=== PATIENT | female | born 1960 | race Caucasian/White ===

== ENCOUNTER → 2017-05-20 | Outpatient (CLI) | payer OTHER ==
[~2017-05-20] MED LIST: LEVOTHYROXIN0.175 MG PO
== END ==
LOC: MC.RAD 09:00
DX: Z12.31 Encounter for screening mammogram for malignant neoplasm of breast (principal)

== ENCOUNTER → 2018-10-05 | Outpatient (CLI) | payer OTHER | LOC: MC.RAD 07:00 | DX: Z12.31 Encounter for screening mammogram for malignant neoplasm of breast (principal) ==

== ENCOUNTER → 2019-02-12 | Outpatient (CLI) | payer OTHER | LOC: COL.RAD 06:59 | DX: J43.9 Emphysema, unspecified (principal); F17.200 Nicotine dependence, unspecified, uncomplicated; Z90.49 Acquired absence of other specified parts of digestive tract | CPT/HCPCS: Q9967 ==

== ENCOUNTER → 2019-05-03 | Outpatient (CLI) | payer OTHER | LOC: COL.RAD 07:17 | DX: R91.8 Other nonspecific abnormal finding of lung field (principal); K31.89 Other diseases of stomach and duodenum; Z87.891 Personal history of nicotine dependence; Z90.49 Acquired absence of other specified parts of digestive tract | CPT/HCPCS: Q9967 ==

== ENCOUNTER → 2019-10-19 | Outpatient (CLI) | payer OTHER | LOC: MC.RAD 09:18 | DX: Z12.31 Encounter for screening mammogram for malignant neoplasm of breast (principal); Z00.00 Encounter for general adult medical examination without abnormal findings ==

== ENCOUNTER → 2020-03-15 | Outpatient (CLI) | payer OTHER | LOC: COL.RAD 07:45 | DX: N28.1 Cyst of kidney, acquired (principal); Q43.8 Other specified congenital malformations of intestine; Z90.49 Acquired absence of other specified parts of digestive tract | CPT/HCPCS: A9585 ==

== ENCOUNTER → 2020-10-03 | Outpatient (CLI) | payer OTHER | LOC: COL.RAD 08:16 | DX: R19.00 Intra-abdominal and pelvic swelling, mass and lump, unspecified site (principal) | CPT/HCPCS: A9585 ==

== ENCOUNTER → 2023-09-11 | Outpatient (CLI) | payer OTHER | LOC: COL.RAD 13:29 | DX: Z12.2 Encounter for screening for malignant neoplasm of respiratory organs (principal); Z87.891 Personal history of nicotine dependence ==

== ENCOUNTER → 2024-09-15 | Outpatient (CLI) | payer MEDICARE, OTHER | LOC: COL.RAD 09:40 | DX: Z12.2 Encounter for screening for malignant neoplasm of respiratory organs (principal); Z87.891 Personal history of nicotine dependence ==